=== PATIENT | male | born 1980 | race Two or more races ===

== ENCOUNTER 2021-12-12 18:01 | Emergency (ER) | payer OTHER ==
[~2021-12-12] VITALS: Ht 170.2 cm; Wt 93.6 kg
[2021-12-12 18:50] VITALS: BP 157/93
[2021-12-12] MEDS ORDERED: LIDOCAINE (700MG/PATCH) PATCH. TD SCH (19:20)
[2021-12-12] MEDS ORDERED: ORPHENADRINE CITRATE 60 MG/2 ML VIAL. IM ONE (19:30)
[2021-12-12] MEDS ORDERED: KETOROLAC 60 MG/2 ML VIAL. IM ONE (19:30)
[2021-12-12] MEDS ORDERED: ORPH-16 PO (20:29)
--- NOTE | 2021-12-12 20:29 | PHYS DOC ---
Past History Additional Past Medical Histor: 2 herniated lumbar disks (JENNIFER ALAMO) Smoking: Non-smoker Drug Use: None (JENNIFER ALAMO) General Adult EDM: Chief Complaint: BACK PAIN OR INJURY HPI: HPI: Patient is a 41 year old male who presents with right-sided low back pain radiating down his right leg. Patient states that he "tweaked" his back on Tuesday. He rested and did not work out on Tuesday or Tuesday. He was feeling better and decided to work out on . Yesterday, he helped a friend move. Today, while he was sitting on the couch, he had a sudden onset of intense right low back tightness and pain that caused him to lose his breath for a moment. He states that since that time, movement has been incredibly painful and it is difficult for him to find a comfortable position. Patient denies traumatic injury, bowel or bladder incontinence, saddle anesthesia, IV drug use. (JENNIFER ALAMO) Review of Systems: Review of Systems: ROS negative or noncontributory except as mentioned in HPI. (JENNIFER ALAMO) Current Medications: Current Meds: Current Medications Medications (Trade) Dose Ordered Sig/Jonathon Start Time Stop Time Status Last Admin Dose Admin Ketorolac Tromethamine (Toradol Im) 60 mg 1X ONCE 12/12/21 19:30 12/12/21 19:31 DC 12/12/21 20:17 60 MG Lidocaine (Lidoderm) 1 patch DAILY 12/12/21 19:20 12/12/21 20:19 1 PATCH Miscellaneous (Lidoderm Patch Removal) 1 ea QHS 12/13/21 21:00 Orphenadrine Citrate (Norflex) 60 mg 1X ONCE 12/12/21 19:30 12/12/21 19:31 DC 12/12/21 20:18 60 MG (JENNIFER ALAMO) Allergies: Allergies: Allergies Coded Allergies Type Severity Reaction Last Updated Verified No Known Drug Allergies 12/12/21 No (JENNIFER ALAMO) Physical Exam: PE: Constitutional: Well developed, well nourished, no acute distress, non-toxic appearance. HENT: Normocephalic, atraumatic, bilateral external ears normal, nose normal. Eyes: EOMI, conjunctiva normal, no discharge. Neck: Normal range of motion, no stridor. Skin: Warm, dry, no erythema, no rash. Back: No step-off, no bony tenderness, right-sided paraspinal tenderness noted in the low lumbar and sacral regions. Extremities: No tenderness, no cyanosis, no clubbing, ROM intact, no edema. Neurologic: Alert and oriented x4, no focal deficits noted, straight leg raise test positive on the right side at approximately 30 degrees with pain radiating to posterior mid thigh. (JENNIFER ALAMO) Heart Score: C/O Chest Pain: No (JENNIFER ALAMO) Course & Med Decision Making: Course & Med Decision Making Pertinent Labs and Imaging studies reviewed. (See chart for details) (JENNIFER ALAMO) Course & Med Decision Making Did not see or evaluate patient. Did not discuss patient with PA. Generally agree with PAs work-up and disposition per note (NATE PETTY MD) Dragon Disclaimer: Dragon Disclaimer: This electronic medical record was generated, in whole or in part, using a voice recognition dictation system. (JENNIFER ALAMO) Departure Departure: Impression: Primary Impression: Sciatica of right side associated with disorder of lumbar spine Additional Impression: History of herniated intervertebral disc Disposition: HOME / SELF CARE / HOMELESS Condition: IMPROVED Referrals: PCP,NO (PCP) JESSIE PINEDA MD Patient Instructions: Back Pain, Adult, [id number] Additional Instructions: EMERGENCY DEPARTMENT GENERAL DISCHARGE INSTRUCTIONS Thank you for coming to [facility] (ED) today and trusting us with you care. We trust that you had a positive experience in our Emergency Department. If you wish to speak to the department management, you may call the director at [phone]. YOUR FOLLOW UP INSTRUCTIONS ARE FOLLOWS: 1. Follow up with your primary care doctor. If you do not have a primary doctor, please ask for a resource list of physicians or clinics that may be able to assist you with follow up care. 2. The emergency provider has interpreted your imaging studies, if any were ordered. The radiology clinical lab specialist also reviewed them. If there is a change in the findings, you will be notified in 48 hours when at all possible. 3. If a lab test or culture has been done, your results will be reviewed and you will be notified if you need a change in treatment. 4. Follow instructions verbalized to you and refer to the printouts if needed. ADDITIONAL INSTRUCTIONS AND INFORMATION: 1. Your care today has been supervised by a physician who is specially trained in emergency care. Many problems require more than one evaluation for a complete diagnosis and treatment. We recommend that you schedule your follow up appointment as recommended to ensure complete treatment of you illness or injury. If you are unable to obtain follow up care and continue to have a problem, or if your condition worsens, we recommend that you return to the ED. 2. We are not able to safely determine your condition over the phone nor are we able to give sound medical advice over the phone. For these safety reasons, if you call for medical advice we will ask you to come to the ED for further evaluation. 3. If you have any questions regarding these discharge instructions please call the ED at [phone]. SAFETY INFORMATION: In the interest of safety, wellness, and injury prevention; we encourage you to wear your seat belt, if you smoke; quite smoking, and we encourage family to use a protective helmet for bicycling and other sporting events that present an increased risk for head injury. IF YOUR SYMPTOMS WORSEN OR NEW SYMPTOMS DEVELOP, OR YOU HAVE CONCERNS ABOUT YOUR CONDITION; OR IF YOUR CONDITION WORSENS WHILE YOU ARE WAITING FOR YOUR FOLLOW UP APPOINTMENT; EITHER CONTACT YOUR PRIMARY CARE DOCTOR, THE PHYSICIAN WHOSE NAME AND NUMBER YOU WERE GIVEN, OR RETURN TO THE ED IMMEDIATELY. Scripts Orphenadrine Citrate (ORPHENADRINE CITRATE) 100 Mg Tablet.er 1 TAB PO BID for pain, #20 TAB 0 Refills Prov: JENNIFER ALAMO 12/12/21 JENNIFER ALAMO Dec 12, 2021 20:29 NATE PETTY MD Dec 12, 2021 22:42
[2021-12-13] MEDS ORDERED: PATCH REMOVAL. MC SCH (21:00)
== END 2021-12-12 20:30 | disposition home or self-care (01) ==
LOC: ER 18:01
DX: M54.41 Lumbago with sciatica, right side (principal); M51.26 Other intervertebral disc displacement, lumbar region
CPT/HCPCS: 96372; 99284; J1885; J2360